=== PATIENT | female | born 1940 | race African-American/Black ===

== ENCOUNTER 2018-11-28 09:29 | Emergency (ER) | payer OTHER ==
[~2018-11-28] VITALS: Ht 165.1 cm; Wt 52.2 kg
[2018-11-28 09:30] VITALS: BP_SYST 125
[2018-11-28 10:21] VITALS: BP_SYST 125
== END 2018-11-28 10:21 | disposition home or self-care (01) ==
LOC: SED 09:29
DX: R07.89 Other chest pain (principal); B02.9 Zoster without complications; Z88.6 Allergy status to analgesic agent
CPT/HCPCS: 99283